=== PATIENT | male | born 1980 | race Two or more races ===

== ENCOUNTER 2016-06-15 16:57 | Emergency (ER) | payer MEDICAID ==
[~2016-06-15] VITALS: Ht 165.1 cm; Wt 81.6 kg
[2016-06-15 17:14] VITALS: BP 137/98
[2016-06-15] MEDS ORDERED: IBUPROFEN 600 MG TABLET PO ONE ×2 (17:30)
== END 2016-06-15 17:45 | disposition home or self-care (01) ==
LOC: ER 17:06
DX: M54.9 Dorsalgia, unspecified (principal); E78.00 Pure hypercholesterolemia, unspecified
CPT/HCPCS: A4606; Z7610